=== PATIENT | female | born 1975 | race Caucasian/White ===

== ENCOUNTER → 2018-05-13 | Outpatient (CLI) | payer BC ==
--- NOTE | 2018-05-16 15:07 | MM ---
Reason for exam: screening (asymptomatic). Last mammogram was performed 4 years and 7 months ago. Physical Findings: A clinical breast exam by your physician is recommended on an annual basis and results should be correlated with mammographic findings. MG Screening Mammo w CAD Bilateral CC and MLO view(s) were taken. Prior study comparison: October 23, 2013, mammogram, performed at [facility]. The breast tissue is extremely dense which could obscure a lesion on mammography. No significant changes when compared with prior studies. ASSESSMENT: Negative, BI-RAD 1 RECOMMENDATION: Routine screening mammogram of both breasts in 1 year.
== END | disposition home or self-care (01) ==
LOC: RADMAMWWP 15:22
PROVIDERS: ATTEND Family Medicine
DX: Z12.31 Encounter for screening mammogram for malignant neoplasm of breast (principal)
CPT/HCPCS: 77067

== ENCOUNTER → 2020-12-22 | Outpatient (CLI) | payer OTHER ==
--- NOTE | 2020-12-23 11:42 | MM ---
Reason for exam: screening (asymptomatic). Last mammogram was performed 2 years and 7 months ago. History: Took hormonal contraceptives for 5 years. Physical Findings: A clinical breast exam by your physician is recommended on an annual basis and results should be correlated with mammographic findings. MG 3D Screening Mammo W/Cad Bilateral CC and MLO view(s) were taken. Prior study comparison: May 13, 2018, bilateral MG screening mammo w CAD. October 23, 2013, mammogram, performed at [facility]. The breast tissue is extremely dense which could obscure a lesion on mammography. Finding: There is a suspicious, equal architectural distortion located 7 cm from the nipple in the outer quadrant, posterior position of the left breast. New finding since May 13, 2018 and October 23, 2013. ASSESSMENT: Incomplete: need additional imaging evaluation, BI-RAD 0 RECOMMENDATION: Special view mammogram of the left breast. If lesion persists on supplemental views, image directed ultrasound is recommended. [facility] will attempt to contact patient to return for supplemental views and ultrasound if indicated.
== END | disposition home or self-care (01) ==
LOC: RADMAMWWP 14:31
PROVIDERS: ATTEND Family Medicine
DX: Z12.31 Encounter for screening mammogram for malignant neoplasm of breast (principal)
CPT/HCPCS: 77063; 77067

== ENCOUNTER → 2020-12-26 | Outpatient (CLI) | payer OTHER ==
--- NOTE | 2020-12-30 11:59 | MM ---
Reason for exam: additional evaluation requested from abnormal screening. Last mammogram was performed less than 1 month ago. History: Took hormonal contraceptives for 5 years. Physical Findings: Nurse did not find any significant physical abnormalities on exam. MG 3D Work Up W/Cad LT Spot compression CC, XCCL, and ML view(s) were taken of the left breast. Prior study comparison: May 13, 2018, bilateral MG screening mammo w CAD. October 23, 2013, mammogram, performed at [facility]. The breast tissue is heterogeneously dense. This may lower the sensitivity of mammography. The posterior central left CC asymmetric density disperses on additional views. These results were verbally communicated with the patient and result sheet given to the patient on 12/26/20. ASSESSMENT: Benign, BI-RAD 2 RECOMMENDATION: Return to routine screening mammogram schedule for both breasts.
== END | disposition home or self-care (01) ==
LOC: RADMAMWWP 07:03
PROVIDERS: ATTEND Family Medicine
DX: R92.8 Other abnormal and inconclusive findings on diagnostic imaging of breast (principal)
CPT/HCPCS: 77061; 77065

== ENCOUNTER → 2022-08-30 | Outpatient (CLI) | payer OTHER ==
--- NOTE | 2022-08-31 07:50 | MM ---
Reason for Exam: Screening (asymptomatic). Last mammogram was performed 1 year(s) and 8 month(s) ago. Patient History: Menarche at age 12. First Full-Term at age 27. Patient used Hormonal Contraceptives for 5 years. Risk Values: Pau 5 year model risk: 0.9%. NCI Lifetime model risk: 10.5%. Prior Study Comparison: 05/13/2018 Bilateral Screening Mammogram, [facility]. 12/22/2020 Bilateral Screening Mammogram, [facility]. 12/26/2020 Left Diagnostic Mammogram, [facility]. Tissue Density: The breast tissue is heterogeneously dense. This may lower the sensitivity of mammography. Findings: Analyzed By CAD. There is no suspicious group of microcalcifications or new suspicious mass in either breast. Overall Assessment: Benign, BI-RAD 2 Management: Screening Mammogram of both breasts in 1 year. A clinical breast exam by your physician is recommended on an annual basis and results should be correlated with mammographic findings. Electronically signed and approved by: Ric Mcwilliams M.D. Radiologis
== END | disposition home or self-care (01) ==
LOC: RADMAMWWP 07:58
PROVIDERS: ATTEND Family Medicine
DX: Z12.31 Encounter for screening mammogram for malignant neoplasm of breast (principal)
CPT/HCPCS: 77067

== ENCOUNTER → 2022-12-06 | Outpatient (CLI) | payer OTHER ==
[2022-12-06 19:59] LABS: Cat Epith & Dander IgE 1.65 kU/L; Ragweed,Common IgE 0.76 kU/L
[2022-12-07 14:37] LABS: Alt. alternata IgE Class CLASS 0; Alternaria alternata IgE <0.10 kU/L (<0.10); Asperg. fumagatus IgE <0.10 kU/L (<0.10); Asperg. fumagatus IgE Class CLASS 0; Candida albicans IgE Class CLASS 0; Clad herbarum IgE <0.10 kU/L (<0.10); Clad herbarum IgE Class CLASS 0; Com. Pigweed IgE 0.22 kU/L (<0.10); Com. Pigweed IgE Class CLASS 0/1; English Plantain IgE Class CLASS 0/1; Goldenrod IgE 0.21 kU/L (<0.10); Goldenrod IgE Class CLASS 0/1; House Dust (Greer) IgE 0.87 kU/L (<0.10); House Dust (Greer) IgE Class CLASS 2; Lamb's Quarter IgE 0.18 kU/L (<0.10); Lamb's Quarter IgE Class CLASS 0/1; Mucor racemosus IgE <0.10 kU/L (<0.10); Mucor racemosus IgE Class CLASS 0; Mugwort IgE Class CLASS 0/1; Penicillium chrysogenum IgE <0.10 kU/L (<0.10); Penicillium chrysogenum IgE Cl CLASS 0; Sheep Sorrel IgE 0.25 kU/L (<0.10); Sheep Sorrel IgE Class CLASS 0/1
== END | disposition home or self-care (01) ==
LOC: LABWHC1 11:02
PROVIDERS: ATTEND Nurse Practitioner Family
DX: H10.10 Acute atopic conjunctivitis, unspecified eye (principal); J30.9 Allergic rhinitis, unspecified
CPT/HCPCS: 36415; 86003

== ENCOUNTER → 2023-09-11 | Outpatient (CLI) | payer OTHER ==
--- NOTE | 2023-09-12 15:10 | MM ---
Reason for Exam: Screening (asymptomatic). Last mammogram was performed 1 year(s) and 1 month(s) ago. Patient History: Menarche at age 12. First Full-Term at age 27. Perimenopausal. Patient used Hormonal Contraceptives for 5 years. Risk Values: Pau 5 year model risk: 1.0%. NCI Lifetime model risk: 10.3%. Prior Study Comparison: 12/22/2020 Bilateral Screening Mammogram, [facility]. 12/26/2020 Left Diagnostic Mammogram, [facility]. 08/30/2022 Bilateral MG screening mammo w CAD, [facility]. Tissue Density: The breasts are extremely dense, which lowers the sensitivity of mammography. Findings: Analyzed By CAD. There is no suspicious group of microcalcifications or new suspicious mass in either breast. Overall Assessment: Benign, BI-RAD 2 Management: Screening Mammogram of both breasts in 1 year. . Patient should continue monthly self-breast exams. A clinical breast exam by your physician is recommended on an annual basis. This exam should not preclude additional follow-up of suspicious palpable abnormalities. Note on Pau scores and lifetime risk: 1. A Pau score greater than 3% is considered moderate risk. If this is the case, consider specialist referral to assess eligibility for a risk reducing agent. 2. If overall lifetime risk for the development of breast cancer is 20% or higher, the patient may qualify for future screening with alternating mammogram and breast MRI. Electronically signed and approved by: Ric Mcwilliams M.D. Radiologis
== END | disposition home or self-care (01) ==
LOC: RADMAMWWP 08:04
PROVIDERS: ATTEND Family Medicine
DX: Z12.31 Encounter for screening mammogram for malignant neoplasm of breast (principal)
CPT/HCPCS: 77067

== ENCOUNTER 2023-09-13 08:05 | Day surgery (SDC) | payer OTHER ==
[~2023-09-13 08:05] MED LIST: HYDROmorphone 0.5 MG/0.5 ML SYRINGE IVP PRN; Pre Op ABX Message 1 EACH MISC MISCELLANE ONE
[2023-09-13] MEDS: LACTATED RINGERS 1,000 ML IV SCH (08:32)
[2023-09-13 08:42] VITALS: RESP 16
[2023-09-13] MEDS: ONDANSETRON 4 MG/2 ML VIAL IVP ONE (08:44)
[2023-09-13] MEDS: MIDAZOLAM 2 MG/2 ML VIAL IV PRN (08:44)
[2023-09-13] MEDS: SCOPOLAMINE 1 MG/72 HR PATCH TRANSDERM ONE (08:44)
[2023-09-13] MEDS: DEXAMETHASONE SOD PHOSPHATE 4 MG/ML 1 ML VIAL IV ONE (08:44)
[2023-09-13] MEDS ORDERED: KETOROLAC 15 MG/ML 1 ML VIAL ONE (09:45)
[2023-09-13] MEDS ORDERED: MIDAZOLAM 2 MG/2 ML VIAL ONE (09:45)
[2023-09-13] MEDS ORDERED: PROPOFOL 10 MG/ML 20 ML VIAL IV ONE (09:45)
[2023-09-13] MEDS ORDERED: LIDOCAINE 1% INJ 10MG/ML (20 ML MDV) ONE (09:45)
[2023-09-13] MEDS ORDERED: fentaNYL (PF) 50 MCG/ML 2 ML AMP ONE (09:45)
[2023-09-13] MEDS: BUPIVACAINE (PF) 0.25% 30 ML VIAL MISCELLANE ONE (10:06)
[2023-09-13 10:51] VITALS: TEMP 97
[2023-09-13 11:33] VITALS: BP 115/77; PULSE 67
--- NOTE | 2023-09-13 14:56 | P.OP ---
Date of Procedure: 09/13/23 Preoperative Diagnosis: Rodriguez's neuroma right foot Postoperative Diagnosis: same Procedure(s) Performed: excision of Rodriguez's neuroma right foot Implants: none Anesthesia: SAILAJAA Surgeon: Javier Vallejo Estimated Blood Loss (ml): 1 Pathology: none sent Condition: stable Disposition: PACU Description of Procedure: the patient was brought into the operative room placed on table supine position. Timeout was taken to confirm correct patient identifiers, correct laterally of surgery, and correct procedure. Once the staff in the room were in agreement with the timeout, the patient was induced and placed under general anesthesia. A well-padded tourniquet was placed on the right ankle and then 17 mL of 0.25% Marcaine was injected as a forefoot block area right foot was then prepped and draped in usual manner. The right foot was exsanguinated and the tourniquet inflated to 250 mmHg. Attention directed over the dorsal aspect of the foot in the location of the third webspace. An incision was made at the distal aspect of the webspace and extended between the third and fourth metatarsals. It was deepened under the subcutaneous tissue careful to identify, avoid, and retract any neurovascular structures and cauterize any bleeding vessels. Blunt dissection was then carried down to the deep transverse metatarsal ligament. Blunt instrumentation was inserted deep to this ligament and then the ligament was transected. The distractor was placed between this third and fourth metatarsals to open up the space. There was significant scarring of the tissue especially along the fourth metatarsal from midshaft and distal to the head. The common digital nerve was entrapped within the scar tissue without significant evidence of neuroma. Due to the patient's symptoms, it was decided to transect the nerve. Therefore the common digital nerve was clamped an isolated and then transected distally and then the medial lateral branches to the third and fourth digits were also transected and then that portion of the nerve removed. The proximal stump of the nerve was then tagged with 4-0 Monocryl and sewn into adjacent adipose tissue. The wound is then thoroughly irrigated with sterile saline. Deep closure was done with 4-0 Monocryl and skin closure done with 3-0 nylon. Jumpstart dressing and a dry sterile bandage were applied to the right foot. The tourniquet was released and capillary refill return to all digits on the right foot. The patient tolerated above procedure and anesthesia well and went to recovery vital signs stable.
== END 2023-09-13 12:21 | disposition home or self-care (01) ==
LOC: OR 08:05
PROVIDERS: ATTEND Podiatrist
DX: G57.61 Lesion of plantar nerve, right lower limb (principal); K21.9 Gastro-esophageal reflux disease without esophagitis; F41.9 Anxiety disorder, unspecified; F32.A Depression, unspecified; F41.0 Panic disorder [episodic paroxysmal anxiety]; F17.200 Nicotine dependence, unspecified, uncomplicated; Z79.899 Other long term (current) drug therapy; Z91.048 Other nonmedicinal substance allergy status
CPT/HCPCS: 28080; 81025; J2250; J1100; J2405; J2001; J3010; J1885; J2704; J0665